=== PATIENT | female | born 1960 | race Caucasian/White ===

== ENCOUNTER 2017-02-20 09:15 | Inpatient (IN) | payer BC, OTHER ==
[2017-02-20] VITALS (20 sets, daily range): BP systolic 105–140; BP diastolic 54–113; PULSE 68–204; RESP 18–20; TEMP 97.6–97.9; O2SAT 93–97
[~2017-02-20] VITALS: Ht 165.1 cm; Wt 141.0 kg
[2017-02-20] MEDS ORDERED: DILTIAZEM HCL 25 MG/5 ML VIAL ONE (09:25)
[2017-02-20] MEDS ORDERED: DILTIAZEM HCL 25 MG/5 ML VIAL IV ONE ×2 (09:30→09:45)
[2017-02-20] MEDS ORDERED: SODIUM CHLORIDE 0.9% FLUSH 10 ML FLUSH IVF PRN ×2 (09:30)
[2017-02-20] MEDS ORDERED: DILTIAZEM INJ 125 MG in SODIUM CHLORIDE 0.9% INJ 100 ML IV SCH (09:30)
[2017-02-20] MEDS ORDERED: ASPIRIN 325 MG TAB PO ONE (09:30)
[2017-02-20] MEDS ORDERED: METH8TAB3 PO (09:34)
[2017-02-20] MEDS ORDERED: APRE1TAB3 PO (09:34)
[2017-02-20] MEDS ORDERED: MOBI15TA PO (09:34)
[2017-02-20 09:41] LABS: AUTOMATED NEUTROPHIL # 6.9 TH/MM3 (1.8-7.7); BASOPHIL # 0.1 TH/MM3 (0-0.2); EOSINOPHIL # 0.2 TH/MM3 (0-0.4); EOSINOPHIL % 1.8 % (0.0-4.0); HEMATOCRIT 46.7 % (35.0-46.0); LYMPH % 39.8 % (9.0-44.0); LYMPHOCYTE # 5.2 TH/MM3 (1.0-4.8); MEAN CELL VOLUME 81.2 FL (80.0-100.0); MEAN CORPUSCULAR HEMOGLOBIN 25.6 PG (27.0-34.0); MEAN CORPUSCULAR HGB CONC 31.6 % (32.0-36.0); MONO % 5.6 % (0.0-8.0); NEUT % 51.8 % (16.0-70.0); PLATELET COUNT 318 TH/MM3 (150-450); RED BLOOD COUNT 5.75 MIL/MM3 (4.00-5.30); RED CELL DISTRIBUTION WIDTH 15.9 % (11.6-17.2); WHITE BLOOD COUNT 13.1 TH/MM3 (4.0-11.0)
[2017-02-20 09:42] LABS: HEMO FLAGS DIFF FINAL
[2017-02-20 09:50] LABS: APTT (PATIENT) 27.8 SEC (24.3-30.1); INTERNATIONAL NORMALIZED RATIO 0.9 RATIO
--- NOTE | 2017-02-20 09:54 | PD ---
HPI Chief Complaint: Cardiac Complaint Time Seen by Provider: 09:23 Travel History International Travel<30 days: No Contact w/Intl Traveler<30days: No Traveled to known affect area: No History of Present Illness HPI This 56-year-old female says that around 7:30 this morning she felt some pressure in her jaw. This was persistent until she came to the ER. It is swollen up a bit. She did have some palpitations and felt her heart was racing. She did not have syncope. She has no known history of heart disease. She does have significant history for psoriatic arthritis and is on Medrol, meloxicam. She ultimately bit short of breath. She initially denied chest pain.. PFSH Past Medical History ?: Not Past Surgical History Surgical History: No Previous Surgery Social History Alcohol Use: No Tobacco Use: Yes Substance Use: No Allergies-Medications (Allergen,Severity, Reaction): Coded Allergies: No Known Allergies (Unverified , 02/20/17) Reported Meds & Prescriptions Reported Meds & Active Scripts Active Reported Otezla (Apremilast) 30 Mg Tab 1 Tab PO DAILY Methylprednisolone 8 Mg Tab 4 Mg PO DAILY Mobic (Meloxicam) 15 Mg Tab 15 Mg PO DAILY Review of Systems General / Constitutional: No: Fever, Chills Eyes: No: Diploplia, Blurred Vision HENT: No: Headaches, Vertigo Cardiovascular: Positive: Palpitations, Irregular Rhythm, Tachycardia, No: Chest Pain or Discomfort, Edema Respiratory: Positive: Shortness of Breath, No: Cough Gastrointestinal: No: Nausea, Vomiting Genitourinary: No: Urgency, Frequency Musculoskeletal: No: Myalgias, Arthralgias Skin: No Rash Neurologic: No: Weakness, Dizziness Psychiatric: No: Anxiety Hematologic/Lymphatic: No: Easy Bruising Physical Exam Narrative GENERAL: Well-developed female SKIN: Focused skin assessment warm/dry. HEAD: Atraumatic. Normocephalic. EYES: Pupils equal and round. No scleral icterus. No injection or drainage. ENT: No nasal bleeding or discharge. Mucous membranes pink and moist. NECK: Trachea midline. No JVD. CARDIOVASCULAR: Rapid irregular rate and rhythm. No murmur appreciated. RESPIRATORY: No accessory muscle use. Clear to auscultation. Breath sounds equal bilaterally. GASTROINTESTINAL: Abdomen soft, non-tender, nondistended. Hepatic and splenic margins not palpable. MUSCULOSKELETAL: No obvious deformities. No clubbing. No cyanosis. No edema. NEUROLOGICAL: Awake and alert. No obvious cranial nerve deficits. Motor grossly within normal limits. Normal speech. PSYCHIATRIC: Appropriate mood and affect; insight and judgment normal. Data Data Last Documented VS Vital Signs Date Time Temp Pulse Resp B/P Pulse Ox O2 Delivery O2 Flow Rate FiO2 02/20/17 10:53 132 18 114/76 95 Room Air 02/20/17 09:23 97.9 Orders Diltiazem Inj (Cardizem Inj) (02/20/17 09:25) Ecg Monitoring (02/20/17 09:24) Blood Pressure (02/20/17 09:24) Iv Access Insert/Monitor (02/20/17 09:24) Oximetry (02/20/17 09:24) Vital Signs (02/20/17 09:24) Diltiazem Inj (Cardizem Inj) (02/20/17 09:30) Sodium Chloride 0.9% Flush (Ns Flush) (02/20/17 09:30) Diltiazem Inj (Cardizem Inj) (02/20/17 09:30) Electrocardiogram (02/20/17 09:26) Basic Metabolic Panel (Bmp) (02/20/17 09:26) Complete Blood Count With Diff (02/20/17 09:26) Magnesium (Mg) (02/20/17 09:26) Prothrombin Time / Inr (Pt) (02/20/17 09:26) Act Partial Throm Time (Ptt) (02/20/17 09:26) Troponin I (02/20/17 09:26) Oxygen Administration (02/20/17 09:26) Aspirin (Aspirin) (02/20/17 09:30) Sodium Chloride 0.9% Flush (Ns Flush) (02/20/17 09:30) Chest, Single Ap (02/20/17 09:26) Diltiazem Inj (Cardizem Inj) (02/20/17 09:45) Admit Order (Ed Use Only) (02/20/17 11:04) Consult Cardiology (02/20/17 ) Heparin Infusion OMER.Q1H (02/20/17 11:04) Heparin Inj (Heparin Inj) (02/20/17 11:15) Heparin Inj (Heparin Inj) (02/20/17 17:15) Heparin Inj (Heparin Inj) (02/20/17 17:15) Heparin-D5w Inj (Heparin-D5w Inj) (02/20/17 11:15) Cbc No Diff, Includes Plts (02/23/17 06:00) Act Partial Throm Time (Ptt) (02/20/17 18:04) Occult Blood (Hemoccult) Stool (02/20/17 11:04) Labs Laboratory Tests Test 02/20/17 09:30 White Blood Count 13.1 TH/MM3 Red Blood Count 5.75 MIL/MM3 Hemoglobin 14.7 GM/DL Hematocrit 46.7 % Mean Corpuscular Volume 81.2 FL Mean Corpuscular Hemoglobin 25.6 PG Mean Corpuscular Hemoglobin 31.6 % Concent Red Cell Distribution Width 15.9 % Platelet Count 318 TH/MM3 Mean Platelet Volume 7.8 FL Neutrophils (%) (Auto) 51.8 % Lymphocytes (%) (Auto) 39.8 % Monocytes (%) (Auto) 5.6 % Eosinophils (%) (Auto) 1.8 % Basophils (%) (Auto) 1.0 % Neutrophils # (Auto) 6.9 TH/MM3 Lymphocytes # (Auto) 5.2 TH/MM3 Monocytes # (Auto) 0.7 TH/MM3 Eosinophils # (Auto) 0.2 TH/MM3 Basophils # (Auto) 0.1 TH/MM3 CBC Comment DIFF FINAL Differential Comment Prothrombin Time 10.0 SEC Prothromb Time International 0.9 RATIO Ratio Activated Partial 27.8 SEC Thromboplast Time Sodium Level 141 MEQ/L Potassium Level 3.9 MEQ/L Chloride Level 108 MEQ/L Carbon Dioxide Level 24.4 MEQ/L Anion Gap 9 MEQ/L Blood Urea Nitrogen 12 MG/DL Creatinine 0.67 MG/DL Estimat Glomerular Filtration 91 ML/MIN Rate Random Glucose 246 MG/DL Calcium Level 8.6 MG/DL Magnesium Level 1.8 MG/DL Troponin I 0.02 NG/ML [facility] Medical Decision Making Medical Screen Exam Complete: Yes Emergency Medical Condition: Yes Medical Record Reviewed: Yes Differential Diagnosis Differential includes SVT, dysrhythmia, coronary syndrome. EKG shows atrial fibrillation at a rate of 188. Patient had been having some jaw pain but it resolved on arrival. She is not having chest pain at time of initial evaluation. He was started on Cardizem. She was given initially 25 mg. This had minimal effect and her heart rate remained about 150-160. Initial 25 has been given and her heart rate does slow down to about 1:30. A repeat EKG shows a regular rhythm at a rate of 1:30 which I suspect flutter with a 2 to one block. Case has been discussed with Dr. Torrez who requests transfer to [facility] possible cardioversion Narrative Course Case discussed with Dr. Torrez who requests transfer to [facility] possible cardioversion Diagnosis Primary Impression: Rapid atrial fibrillation Admitting Information Admitting Physician Requests: Admit Horacio Victoria MD Feb 20, 2017 09:53
[2017-02-20 10:00] LABS: BICARBONATE 24.4 MEQ/L (21.0-32.0); MAGNESIUM 1.8 MG/DL (1.5-2.5)
[2017-02-20 10:01] LABS: POTASSIUM 3.9 MEQ/L (3.5-5.1)
--- NOTE | 2017-02-20 10:35 | RADRPT ---
EXAM DATE/TIME: 02/20/2017 10:02 [place] COMPARISON: No previous studies available for comparison. INDICATIONS : Short of breath. MEDICAL HISTORY : None. SURGICAL HISTORY : None. ENCOUNTER: Initial ACUITY: 1 day PAIN SCORE: 0/10 LOCATION: Bilateral chest FINDINGS: There is mild cardiomegaly with moderate congestive failure. There is no pleural effusion, pneumotho rax or other consolidation. Degenerative changes about both shoulders. CONCLUSION: Moderate congestive failure. Mario Daniels MD FACR on February 20, 2017 at 10:33 Board Certified Radiologist. This report was verified electronically.
[2017-02-20] MEDS ORDERED: HEPARIN SODIUM - IV 10,000 UNITS/10 ML VIAL IV ONE (11:15)
[2017-02-20] MEDS: HEPARIN-D5W INJ 250 ML IV SCH (11:25)
[2017-02-20] MEDS ORDERED: SODIUM CHLORIDE 0.9% FLUSH 10 ML FLUSH IV FLUSH PRN (11:45)
[2017-02-20] MEDS ORDERED: POVIDONE IODINE 5% (ANTISEPSIS KIT) 4 APPLICATIONS EACH NARE PRN (13:30)
[2017-02-20] MEDS ORDERED: METOPROLOL TARTRATE 25 MG TAB PO PRN (13:30)
[2017-02-20] MEDS ORDERED: LACTATED RINGER'S 1000 ML IV PRN (13:30)
[2017-02-20] MEDS ORDERED: INSULIN HUMAN REGULAR 1,000 UNITS/10 ML VIAL SQ PRN (13:30)
[2017-02-20] MEDS ORDERED: SODIUM CHLORID 0.9% 500 ML IV PRN (13:30)
[2017-02-20] MEDS ORDERED: CHLORHEXIDINE GLUCONATE 2 % 1 PACK (2 CLOTHS) TOPICAL PRN (13:30)
--- NOTE | 2017-02-20 15:01 | MB ---
cc: YADIRA CH DATE OF CONSULTATION: 02/20/2017 HISTORY OF PRESENT ILLNESS Ms. Knight is a 56-year-old white female with morbid obesity. She woke up this morning with jaw pressure and subsequently felt palpitations. She does not have any initial chest pain. She now complains of occasional episodes of sharp low substernal chest discomfort. She has had mild shortness of breath. She has not had any peripheral edema. She has no previous history of heart disease. She has history of arthritis and apparently gained weight after she was started on steroids several years ago. PAST MEDICAL HISTORY Negative for hypertension, dyslipidemia, diabetes mellitus, coronary artery disease, CVA. History of arthritis. MEDICATION Otezla, methylprednisolone and Mobic. ALLERGIES None. SOCIAL HISTORY Patient is a smoker. She does not drink alcohol. FAMILY HISTORY Positive for heart disease and coronary bypass in her father. REVIEW OF SYSTEMS Review of systems is otherwise negative. PHYSICAL EXAMINATION VITAL SIGNS: Blood pressure 140/81, pulse 133 and regular. HEENT: Negative. NECK: 2+ carotid upstrokes. No bruits. LUNGS: Clear with distant sounds. ABDOMEN: Soft, morbidly obese. No bruits. EXTREMITIES: Without edema. 2+ distal pulses. NEUROLOGIC: Grossly nonfocal. EKG EKG was reviewed and showed atrial flutter with 2:1 block, left axis and left bundle-branch block. Initial rhythm in the emergency was atrial fibrillation with rapid ventricular response. LABORATORY DATA Hemoglobin 14.7, potassium 3.9, creatinine 0.7, troponin negative at 0.02, magnesium 1.8. DIAGNOSIS 1. Atrial fibrillation/flutter with rapid ventricular response. 2. Morbid obesity. 3. Smoking. 4. Arthritis. DISPOSITION Ms. Knight will undergo transesophageal echocardiogram to evaluate for left atrial thrombus and proceed with cardioversion for atrial flutter. Will obtain serial enzymes and EKGs. I will follow her for cardiology during her hospitalization. She was strongly encouraged to quit smoking. Yadira Ch MD OQ/TLL /2:14 PM /2:34 PM
--- NOTE | 2017-02-20 16:32 | HHI.HP ---
HPI Service [facility] Hospitalists Primary Care Physician No Primary Care Physician Admission Diagnosis RAPID ATRIAL FIB Diagnoses: Chief Complaint: Heart palpitations, diaphoresis Travel History International Travel<30 Days: No Contact w/Intl Traveler <30 Da: No Traveled to Known Affected Are: No History of Present Illness 56 Y/O female with a medical history significant for psoriatic arthritis, prediabetes presents with complaints of sudden heart palpitations associated with diaphoresis. On arrival to the ED, her heart rate was found to be in the 180's and tele showed rapid afib. She then reported some brief episodes of chest pain. The patient was immediately transferred to the [facility] and underwent VIDYA with Cardioversion by Dr. Ch. She is seen after the procedure. Currently in sinus rhythm, she states she is feeling much better without chest discomfort or shortness of breath. Review of Systems Constitutional: DENIES: Fever, Chills Respiratory: DENIES: Shortness of breath Cardiovascular: COMPLAINS OF: Palpitations, DENIES: Chest pain, Syncope Gastrointestinal: DENIES: Nausea, Vomiting Musculoskeletal: COMPLAINS OF: Joint pain Except as stated in HPI: all other systems reviewed are Neg Past Family Social History Past Medical History Psoriatic arthritis Pre diabetes, previously on Metformin but she stopped taking on her own Obesity. Past Surgical History Tonsillectomy . Reported Medications Reported Meds & Active Scripts Active Reported Otezla (Apremilast) 30 Mg Tab 1 Tab PO DAILY Methylprednisolone 8 Mg Tab 4 Mg PO DAILY Mobic (Meloxicam) 15 Mg Tab 15 Mg PO DAILY Allergies: Coded Allergies: No Known Allergies (Unverified , 02/20/17) Family History Father with history of CAD, underwent CABG, from complications of CHF. Social History Admits to smoking 1 PPD, quit for months in the past Denies alcohol or illicit drugs. Physical Exam Vital Signs Vital Signs Date Time Temp Pulse Resp B/P Pulse Ox O2 Delivery O2 Flow Rate FiO2 02/20/17 11:28 133 18 140/81 96 Room Air 02/20/17 11:23 133 18 137/113 94 Room Air 02/20/17 10:53 132 18 114/76 95 Room Air 02/20/17 10:15 133 18 96 Room Air 02/20/17 10:00 120 18 115/65 94 Room Air 02/20/17 09:48 105 18 96 Room Air 02/20/17 09:44 97 Room Air 02/20/17 09:44 96 Room Air 02/20/17 09:43 118 20 105/54 94 Room Air 02/20/17 09:35 20 96 Room Air 02/20/17 09:23 97.9 204 18 136/99 95 Physical Exam GENERAL: Obese female, in no apparent distress. SKIN: No rashes, ecchymoses or lesions. Cool and dry. HEAD: Atraumatic. Normocephalic. No temporal or scalp tenderness. EYES: Pupils equal round and reactive. Extraocular motions intact. No scleral icterus. No injection or drainage. ENT: Nose without bleeding, purulent drainage or septal hematoma. Throat without erythema, tonsillar hypertrophy or exudate. Uvula midline. Airway patent. NECK: Trachea midline. No JVD or lymphadenopathy. Supple, nontender, no meningeal signs. CARDIOVASCULAR: Regular rate and rhythm without murmurs, gallops, or rubs. RESPIRATORY: Clear to auscultation. Breath sounds equal bilaterally. No wheezes , rales, or rhonchi. GASTROINTESTINAL: Abdomen soft, non-tender, nondistended. No hepato-splenomegaly , or palpable masses. No guarding. MUSCULOSKELETAL: Extremities without clubbing, cyanosis, or edema. No joint tenderness, effusion, or edema noted. No calf tenderness. Negative Homans sign bilaterally. NEUROLOGICAL: Awake and alert. Cranial nerves II through XII intact. Motor and sensory grossly within normal limits. Five out of 5 muscle strength in all muscle groups. Normal speech. Laboratory Laboratory Tests Test 02/20/17 09:30 White Blood Count 13.1 Red Blood Count 5.75 Hemoglobin 14.7 Hematocrit 46.7 Mean Corpuscular Volume 81.2 Mean Corpuscular Hemoglobin 25.6 Mean Corpuscular Hemoglobin 31.6 Concent Red Cell Distribution Width 15.9 Platelet Count 318 Mean Platelet Volume 7.8 Neutrophils (%) (Auto) 51.8 Lymphocytes (%) (Auto) 39.8 Monocytes (%) (Auto) 5.6 Eosinophils (%) (Auto) 1.8 Basophils (%) (Auto) 1.0 Neutrophils # (Auto) 6.9 Lymphocytes # (Auto) 5.2 Monocytes # (Auto) 0.7 Eosinophils # (Auto) 0.2 Basophils # (Auto) 0.1 CBC Comment DIFF FINAL Differential Comment Prothrombin Time 10.0 Prothromb Time International 0.9 Ratio Activated Partial 27.8 Thromboplast Time Sodium Level 141 Potassium Level 3.9 Chloride Level 108 Carbon Dioxide Level 24.4 Anion Gap 9 Blood Urea Nitrogen 12 Creatinine 0.67 Estimat Glomerular Filtration 91 Rate Random Glucose 246 Calcium Level 8.6 Magnesium Level 1.8 Troponin I 0.02 Result Diagram: 02/20/1792902/20/17929 Imaging Last Impressions Chest X-Ray 02/20/17925 Signed Impressions: Service Date/Time: Monday, February 20, 2017 10:02 - CONCLUSION: Moderate congestive failure. Mario Daniels MD FACR Assessment and Plan Problem List: (1) Atrial fibrillation with RVR ICD Code: I48.91 Status: Acute Plan: Symptomatic, rapid Afib on presentation S/P VIDYA and cardioversion by Dr. Ch Continue to Monitor on Tele. Started on Metoprolol per Cardiology (2) Hyperglycemia ICD Code: R73.9 Status: Acute Plan: Probable diabetes. Patient reports a history of prediabetes and was on Metformin which she discontinued on her own. Check Hemoglobin A1c. SSI with accuchecks. (3) Obesity ICD Code: E66.9 Status: Acute Plan: Chronic steroid use for psoriatic arthritis likely contributed. DW diet with the patient. 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 (4) Tobacco abuse ICD Code: Z72.0 Status: Acute Plan: Patient strongly counseled to quit. Discussed Condition With RN Physician Certification 2 Midnight Certification Type: Admission for Inpatient Services Order for Inpatient Services The services are ordered in accordance with Medicare regulations or non- Medicare payer requirements, as applicable. In the case of services not specified as inpatient-only, they are appropriately provided as inpatient services in accordance with the 2-midnight benchmark. Estimated LOS (days): 2 days is the estimated time the patient will need to remain in the hospital, assuming treatment plan goals are met and no additional complications. Post-Hospital Plan: Home Freeman Yusuf MD Feb 20, 2017 16:32
[2017-02-20] MEDS ORDERED: DEXTROSE 50% IN WATER 50 ML VIAL(D50) IV PRN (16:45)
[2017-02-20] MEDS ORDERED: GLUCAGON 1 MG/ML VIAL OTHER PRN (16:45)
[2017-02-20] MEDS ORDERED: HEPARIN SODIUM - IV 10,000 UNITS/10 ML VIAL IV PRN (17:15)
[2017-02-20 17:52] LABS: APTT (PATIENT) 30.4 SEC (24.3-30.1)
[2017-02-20] MEDS: HEPARIN SODIUM - IV 10,000 UNITS/10 ML VIAL IV PRN (18:02)
[2017-02-20] MEDS: METOPROLOL TARTRATE 25 MG TAB PO SCH (20:26)
[2017-02-20] MEDS: SODIUM CHLORIDE 0.9% FLUSH 10 ML FLUSH IV FLUSH SCH (20:29)
[2017-02-20] MEDS: INSULIN ASPART SUPPLEMENTAL SCALE SQ SCH (20:29)
[2017-02-20 22:23] LABS: HEMOGLOBIN A1a 1.2 %; HEMOGLOBIN A1b 2.2 %; HEMOGLOBIN Ao 81.3 %; HEMOGLOBIN LA1C 2.4 %; HEMOGLOBIN P3 4.3 %
[2017-02-21] VITALS (22 sets, daily range): BP systolic 145–167; BP diastolic 62–90; PULSE 56–80; RESP 16–20; TEMP 97.2–98.4; O2SAT 93–97
[2017-02-21 00:34] LABS: APTT (PATIENT) 32.7 SEC (24.3-30.1)
[2017-02-21] MEDS: HEPARIN SODIUM - IV 10,000 UNITS/10 ML VIAL IV PRN ×2 (00:50→10:11)
[2017-02-21] MEDS: INSULIN ASPART SUPPLEMENTAL SCALE SQ SCH ×3 (06:04→16:00)
--- NOTE | 2017-02-21 08:06 | EKG ---
Date Performed: 02/20/2017 Time Performed: 10:49:31 PTAGE: 56 years EKG: SINUS TACHYCARDIA MARKED LEFT AXIS DEVIATION LEFT BUNDLE BRANCH BLOCK ABNORMAL ECG NO PREVIOUS TRACING DOCTOR: Prosper Kothari Interpretating Date/Time 02/21/2017 08:03:59
--- NOTE | 2017-02-21 08:09 | EKG ---
Date Performed: 02/20/2017 Time Performed: 09:18:54 PTAGE: 56 years EKG: ATRIAL FIBRILLATION WITH RAPID VENTRICULAR RESPONSE MARKED LEFT AXIS DEVIATION POSSIBLE ANT ERIOR MYOCARDIAL INFARCTION ST ELEVATION, CONSIDER SEPTAL INJURY ACUTE WA INTERPRETATION BASED ON A DEFAULT AGE OF 40 YEARS NO PREVIOUS TRACING DOCTOR: Prosper Kothari Interpretating Date/Time 02/21/2017 08:05:10
[2017-02-21] MEDS: METOPROLOL TARTRATE 25 MG TAB PO SCH (08:56)
[2017-02-21] MEDS: SODIUM CHLORIDE 0.9% FLUSH 10 ML FLUSH IV FLUSH SCH (08:56)
[2017-02-21] MEDS: HEPARIN-D5W INJ 250 ML IV SCH (08:57)
[2017-02-21 09:14] LABS: APTT (PATIENT) 34.7 SEC (24.3-30.1)
[2017-02-21] MEDS ORDERED: [UNRECOGNIZED DRUG - OTHER] PO SCH (09:45)
[2017-02-21] MEDS ORDERED: methylPREDNISolone 4 MG TAB PO SCH (09:45)
[2017-02-21] MEDS ORDERED: APREMILAST PO SCH (09:45)
[2017-02-21] MEDS ORDERED: NYSTATIN 100,000 U/GM PWD 15 GM BTL TOPICAL SCH (11:00)
[2017-02-21] MEDS ORDERED: RIVAROXABAN 20 MG TAB PO ONE (14:15)
--- NOTE | 2017-02-21 14:16 | PD.CARD.PN ---
Subjective Subjective Remarks No CP or SOB, stays in SR Objective Medications Current Medications Medications (Trade) Dose Ordered Sig/Cele Route Start Time Stop Time Status Last Admin (NS Flush) 2 ml UNSCH PRN IV FLUSH 02/20/17 11:45 Sodium Chloride 2 ml 2 ml BID IV FLUSH 02/20/17 21:00 02/21/17 08:56 Lactated Ringer's 1,000 ml @ 30 mls/hr Q24H PRN IV 02/20/17 13:30 02/23/17 13:29 (NS 500 ml Inj) 500 ml @ 30 mls/hr [id number] PRN IV 02/20/17 13:30 02/23/17 13:29 (D50w (Vial) Inj) 50 ml UNSCH PRN IV 02/20/17 16:45 (Glucagon Inj) 1 mg UNSCH PRN OTHER 02/20/17 16:45 (Lopressor) 25 mg Q12HR PO 02/20/17 21:00 02/21/17 08:56 (Medrol) 4 mg DAILY PO 02/21/17 09:45 02/21/17 11:40 Patient Own Medication 1 ea DAILY PO 02/21/17 09:45 Hold (Mycostatin Powder) 1 applic Q8H TOPICAL 02/21/17 11:00 02/21/17 11:41 Vital Signs / I&O Vital Signs Date Time Temp Pulse Resp B/P Pulse Ox O2 Delivery O2 Flow Rate FiO2 02/21/17 13:18 95 02/21/17 10:00 64 02/21/17 09:00 70 02/21/17 08:00 56 02/21/17 07:00 62 02/21/17 06:00 60 02/21/17 05:00 60 02/21/17 04:15 97.9 73 20 157/67 95 02/21/17 04:00 62 02/21/17 03:00 58 02/21/17 02:00 80 02/21/17 01:00 61 02/21/17 00:00 97.8 68 20 145/62 93 02/21/17 00:00 58 02/20/17 23:00 70 02/20/17 22:00 70 02/20/17 21:00 68 02/20/17 20:00 72 02/20/17 19:55 97.7 71 20 130/65 93 02/20/17 19:53 97 21 02/20/17 19:00 70 02/20/17 18:12 74 02/20/17 17:14 75 02/20/17 16:54 76 02/20/17 16:35 97.6 70 18 113/73 94 I/O 02/20/17 02/20/17 02/20/17 02/21/17 02/21/17 02/21/17 06:59 14:59 22:59 06:59 14:59 22:59 Intake Total 240 ml 720 ml Output Total 400 ml Balance 240 ml 320 ml Intake Oral 240 ml 580 ml IV Total 140 ml Output Urine Total 400 ml Emesis 0 ml # Voids 1 # Bowel Movements 0 Physical Exam GENERAL: In NAD SKIN: Warm and dry. HEAD: Normocephalic. EYES: No scleral icterus. No injection or drainage. NECK: Supple, trachea midline. No JVD or lymphadenopathy. CARDIOVASCULAR: Regular rate and rhythm without murmurs, gallops, or rubs. RESPIRATORY: Breath sounds equal bilaterally. No accessory muscle use. GASTROINTESTINAL: Abdomen soft, non-tender, nondistended. MUSCULOSKELETAL: No cyanosis, or edema. Laboratory Laboratory Tests Test 02/20/17 02/21/17 02/21/17 17:00 00:02 08:55 Activated Partial 30.4 SEC 32.7 SEC 34.7 SEC Thromboplast Time Hemoglobin A1c 8.2 % Thyroid Stimulating Hormone 0.466 uIU/ML 3rd Gen Imaging Last Impressions Chest X-Ray 02/20/17 0906 Signed Impressions: Service Date/Time: Monday, February 20, 2017 10:02 - CONCLUSION: Moderate congestive failure. Mario Daniels MD FACR Assessment and Plan Problem List: (1) Atrial fibrillation with RVR (2) Morbid obesity (3) Tobacco abuse (4) Hyperglycemia Assessment and Plan Stays in SR after cardioversion. Start anticoagulation with Xarelto. Continue metoprolol. Increase activity. Needs to quit smoking. Discussed increased risk of RI with antiinflammatory meds. Anticipate discharge soon. Will schedule outpatient f/u. Yadira Ch MD Feb 21, 2017 14:16
[2017-02-21] MEDS ORDERED: METO25TA3 PO (15:28)
[2017-02-21] MEDS ORDERED: XARE20TA PO (15:28)
[2017-02-21] MEDS ORDERED: METF500T PO (15:34)
--- NOTE | 2017-02-21 15:35 | HHI.DCPOC ---
Discharge Care Plan Diagnosis: (1) Atrial fibrillation with RVR (2) Rapid atrial fibrillation (3) Obesity (4) Diabetes (5) Tobacco abuse (6) Morbid obesity Goals to Promote Your Health * To prevent worsening of your condition and complications * To maintain your health at the optimal level Directions to Meet Your Goals Take your medications as prescribed Follow your dietary instruction Follow activity as directed Keep your appointments as scheduled Take your immunizations and boosters as scheduled If your symptoms worsen call your PCP, if no PCP go to Urgent Care Center or Emergency Room Smoking is Dangerous to Your Health. Avoid second hand smoke Call the 24-hour hour crisis hotline for domestic abuse at Freeman Yusuf MD Feb 21, 2017 15:35
--- NOTE | 2017-02-21 15:36 | HHI.PR ---
Subjective Remarks Patient reports feeling great and she wants to go home. I discussed with Cardiology Dr. Ch. I discussed discharge planning at length with the patient and her sister at bedside. Objective Vitals Vital Signs Date Time Temp Pulse Resp B/P Pulse Ox O2 Delivery O2 Flow Rate FiO2 02/21/17 13:18 95 02/21/17 11:12 97.2 60 16 152/90 97 02/21/17 10:00 64 02/21/17 09:00 70 02/21/17 08:00 56 02/21/17 07:45 98.4 68 16 159/80 94 02/21/17 07:00 62 02/21/17 06:00 60 02/21/17 05:00 60 02/21/17 04:15 97.9 73 20 157/67 95 02/21/17 04:00 62 02/21/17 03:00 58 02/21/17 02:00 80 02/21/17 01:00 61 02/21/17 00:00 97.8 68 20 145/62 93 02/21/17 00:00 58 02/20/17 23:00 70 02/20/17 22:00 70 02/20/17 21:00 68 02/20/17 20:00 72 02/20/17 19:55 97.7 71 20 130/65 93 02/20/17 19:53 97 21 02/20/17 19:00 70 02/20/17 18:12 74 02/20/17 17:14 75 02/20/17 16:54 76 02/20/17 16:35 97.6 70 18 113/73 94 I/O 02/20/17 02/20/17 02/20/17 02/21/17 02/21/17 02/21/17 07:00 15:00 23:00 07:00 15:00 23:00 Intake Total 764 ml 196 ml Output Total 200 ml 200 ml Balance 564 ml -4 ml Intake Oral 720 ml 100 ml IV Total 44 ml 96 ml Output Urine Total 200 ml 200 ml Emesis 0 ml 0 ml # Voids 1 # Bowel Movements 0 0 Result Diagram: 02/20/1792902/20/17929 Imaging Last Impressions Chest X-Ray 02/20/17925 Signed Impressions: Service Date/Time: Monday, February 20, 2017 10:02 - CONCLUSION: Moderate congestive failure. Mario Daniels MD FACR Objective Remarks GENERAL: This is a well-nourished, well-developed patient, in no apparent distress. CARDIOVASCULAR: Regular rate and rhythm without murmurs, gallops, or rubs. RESPIRATORY: Clear to auscultation. Breath sounds equal bilaterally. No wheezes , rales, or rhonchi. GASTROINTESTINAL: Abdomen soft, non-tender, nondistended. Normal active bowel sounds MUSCULOSKELETAL: Extremities without clubbing, cyanosis, or edema. NEURO: Alert & Oriented x4 to person, place, time, situation. Moves all ext x4 A/P Problem List: (1) Atrial fibrillation with RVR ICD Code: I48.91 Status: Acute Plan: Symptomatic, rapid Afib on presentation S/P VIDYA and cardioversion by Dr. Ch sinus and rate controlled on Metoprolol per Cardiology Patient started on Xarelto and discharge on same. Will f/u with Cardiology outpatient. (2) Obesity ICD Code: E66.9 Status: Acute Plan: Chronic steroid use for psoriatic arthritis likely contributed. DW diet with the patient. She will follow up with her registered clinical dietitian outpatient. (3) Diabetes ICD Code: E11.9 Status: Acute Plan: Hemoglobin A1C 8.2, untreated. Patient previously on Metformin but she discontinued on her own Seen by framing mechanic. DC on Metformin. Outpatient follow up. (4) Tobacco abuse ICD Code: Z72.0 Status: Acute Plan: Patient strongly counseled to quit. Discharge Planning DC home in good condition F/U with PCP and Cardiology Meds: See med rec Activity: Reg as tolerated Diet: Diabetic diet. Freeman Yusuf MD Feb 21, 2017 15:36
[2017-02-21] MEDS ORDERED: GLUCKIT15 (17:11)
[2017-02-21] MEDS ORDERED: LANCETS1 MI1 (17:11)
[2017-02-21] MEDS ORDERED: GLUCTES12 (17:11)
[2017-02-21] MEDS ORDERED: APIXABAN 5 MG TABLET PO SCH (21:00)
--- NOTE | 2017-02-22 16:04 | MR ---
cc: YAYA WOO DATE: 02/20/2017. PROCEDURE PERFORMED: DC cardioversion. INDICATIONS FOR THE PROCEDURE: Atrial flutter with rapid ventricular response. DESCRIPTION OF THE PROCEDURE IN DETAIL: The patient underwent transesophageal echocardiogram which showed no evidence of thrombus. DC cardioversion was performed using a 200 joule biphasic shock. This resulted in sinus rhythm. DIAGNOSIS: Successful cardioversion of atrial flutter with rapid ventricular response. DISPOSITION: Ms. Knight will be monitored on telemetry. MD GEORGIANA Obando/LOS /2:56 PM /3:57 PM
--- NOTE | 2017-02-25 10:45 | CF ---
cc: YAYA WOO PROCEDURE PERFORMED Transesophageal echocardiogram. INDICATION Atrial fibrillation/flutter, evaluation for left atrial thrombus prior to cardioversion. PROCEDURE After the patient was sedated by Anesthesia, the transesophageal probe was placed without difficulty. Tomographic images were obtained. Left ventricular function was borderline normal. Estimated ejection fraction was 50% with no segmental wall motion abnormalities. The aortic valve was structurally normal. There was no evidence of aortic stenosis or vegetation. The mitral valve was structurally normal. There was no evidence of mitral stenosis. There was evidence of mild mitral regurgitation. There was evidence of mild to moderate tricuspid regurgitation and evidence of mild pulmonary hypertension. There was no evidence of pulmonary stenosis or insufficiency. The left atrial appendage was visualized and there was no evidence of left atrial thrombus. A bubble study was performed and there was evidence of patent foramen ovale. DIAGNOSIS 1. No evidence of left atrial thrombus. 2. Patent foramen ovale. 3. Borderline normal left ventricular systolic function. 4. Mild mitral regurgitation. 5. Mild to moderate tricuspid regurgitation. 6. Mild pulmonary hypertension. MD GEORGIANA Obando/YUNG /2:54 PM /10:31 AM
== END 2017-02-21 17:38 | disposition home or self-care (01) | DRG 309 ==
LOC: PHED 09:15 → PHEDA 11:10 → HDIC 13:47 → HCIS 16:37
PROVIDERS: ADMIT Family Medicine; ATTEND Family Medicine
PROC: 5A2204Z Restoration of Cardiac Rhythm, Single (ICD-10-PCS; principal; 2017-02-20)
DX: I48.91 Unspecified atrial fibrillation (principal); Z68.43 Body mass index [BMI] 50.0-59.9, adult; E11.65 Type 2 diabetes mellitus with hyperglycemia; L40.50 Arthropathic psoriasis, unspecified; I48.92 Unspecified atrial flutter; E66.01 Morbid (severe) obesity due to excess calories; Z71.3 Dietary counseling and surveillance; F17.210 Nicotine dependence, cigarettes, uncomplicated; Z79.52 Long term (current) use of systemic steroids
CPT/HCPCS: 71010; 80048; 82948; 83036; 83735; 84443; 84484; 85025; 85610; 85730; 93005; 93312; 93320; 93325; 96365; 96375; J1644; J1815; J7509